=== PATIENT | male | born 1960 | race African-American/Black ===

== ENCOUNTER 2020-03-30 10:12 | Emergency (ER) | payer SELFPAY ==
[~2020-03-30] VITALS: Ht 182.9 cm; Wt 96.0 kg
[2020-03-30] MEDS ORDERED: KETOROLAC 60MG/2ML VIAL IM ONE (11:15)
[2020-03-30 12:13] LABS: HEMATOCRIT. 49.9 % (42.0-52.0); MEAN CORPUSCULAR HEMOGLOBIN 26.8 pg (28.0-32.0); MEAN CORPUSCULAR VOLUME 78.7 fL (80.0-94.0); RED BLOOD CELL COUNT 6.34 mill/uL (4.7-6.1); RED CELL DISTRIBUTION WIDTH 15.6 % (11.6-14.6)
[2020-03-30 12:20] LABS: CHLORIDE 109 mEq/L (98-107)
[2020-03-30 12:49] LABS: CLARITY URINE CLEAR (CLEAR); COLOR URINE YELLOW (YELLOW); KETONES URINE NEGATIVE (NEGATIVE); LEUKOCYTE ESTERASE URINE TRACE (NEGATIVE); NITRITE URINE NEGATIVE (NEGATIVE); OCCULT BLOOD URINE NEGATIVE (NEGATIVE); PH URINE 6.5 (4.5-8.0); PROTEIN URINE NEGATIVE (NEGATIVE)
[2020-03-30 13:08] LABS: OPIATES URINE SCREEN NEGATIVE (NEGATIVE)
[2020-03-30 13:09] LABS: *AMPHETAMINES SCREEN URINE NEGATIVE (NEGATIVE); *BARBITURATES SCREEN URINE NEGATIVE (NEGATIVE); *BENZODIAZEPINES SCREEN URINE NEGATIVE (NEGATIVE); *COCAINE SCREEN URINE NEGATIVE (NEGATIVE); CANNABINOID URINE SCREEN PRESUMTIVE POSITIVE (NEGATIVE); PHENCYCLIDINE URINE SCREEN NEGATIVE (NEGATIVE)
[2020-03-30 13:10] LABS: METHADONE URINE SCREEN NEGATIVE (NEGATIVE)
[2020-03-30 13:26] LABS: PLATELET ESTIMATE NORMAL
[2020-03-30 13:28] LABS: PLATELET 133 x1000/uL (130-400)
[2020-03-30 13:56] VITALS: BP 131/81
== END 2020-03-30 13:57 | disposition home or self-care (01) ==
LOC: ER 10:23
DX: M54.9 Dorsalgia, unspecified (principal)
CPT/HCPCS: 36415; 72131; 80048; 80305; 81003; 85025; 93005; 96372; 99284; J1885